=== PATIENT | female | born 1965 | race Caucasian/White ===

== ENCOUNTER → 2020-11-19 | Day surgery (SDC) | payer BC ==
[~2020-11-19] MED LIST: Ketamine 200 MG/20 ML MDV ONE; Lactated Ringers 1,000 ML IV SCH; Midazolam 1 MG/ML 2 ML SDV ONE; Propofol 200 MG/20 ML SDV ONE
[2020-11-19 12:38] VITALS: BP 152/92; PULSE 59
--- NOTE | 2020-11-19 13:34 | OR ---
DATE OF OPERATION: 11/19/2020 PREOPERATIVE DIAGNOSIS: POSITIVE COLOGUARD. POSTOPERATIVE DIAGNOSIS: POSITIVE COLOGUARD. SURGEON: Inder Stauffer MD PROCEDURE: DIAGNOSTIC COLONOSCOPY WITH BIOPSY X1. ANESTHESIA: MAC. COMPLICATIONS: None. SPECIMEN: Sigmoid biopsy x1. FINDINGS: 1. Full-length colonoscopy. 2. Extremely poor prep. 3. Melanosis coli, diffuse. RECOMMENDATIONS: We will sit down with the patient in followup and discuss the validity of a repeat scope with a longer prep as there were certainly areas of colon hard to see. INDICATIONS: The patient has a history of a positive Cologuard. We recommended a diagnostic procedure. DESCRIPTION OF PROCEDURE: The patient was prepped and draped, placed in the left lateral decubitus position. A lubricated Olympus colonoscope was inserted and easily advanced to the cecum. Unfortunately, the patient's prep was extremely poor. There was liquid dark stool throughout most of the colon. The cecum was irrigated for almost 5 minutes just to be able to visualize the valve and the appendiceal orifice which was accomplished. Upon withdrawal, the areas that we could we suctioned and tried to irrigate, but there was particulate stool in most of these areas as well. At least a third of the colon was hard to visualize at all. Most areas could be irrigated and I suspect larger lesions would have been found, but certainly smaller polyps could have been missed easily. I did not find any gross polyps, masses, ulceration, or bleeding sites. No obvious vascular abnormalities or signs of colitis. The patient does have melanosis coli diffusely and we did do a biopsy for confirmation in the sigmoid. Otherwise, no lesions. The rectal vault was benign. Retroflexion showed no perianal lesions other than some dilated hemorrhoids. Air was suctioned and the scope removed without complication. FARZANA/RAMSEY /[id number]
== END ==
LOC: CC.SDS 10:41
PROVIDERS: ATTEND Family Medicine
DX: K63.89 Other specified diseases of intestine (principal); K64.9 Unspecified hemorrhoids; I10 Essential (primary) hypertension; F51.05 Insomnia due to other mental disorder; D64.9 Anemia, unspecified; F41.8 Other specified anxiety disorders; Z88.8 Allergy status to other drugs, medicaments and biological substances; Z79.899 Other long term (current) drug therapy; Z98.890 Other specified postprocedural states; Z98.84 Bariatric surgery status
CPT/HCPCS: 00811; J2250; J2704; J7120

== ENCOUNTER → 2021-01-21 | Day surgery (SDC) | payer BC ==
[~2021-01-21] MED LIST changes: +Flumazenil 0.1 MG/ML 5 ML MDV ONE; +fentaNYL 100 MCG/2 ML SDV ONE
[2021-01-21 09:35] VITALS: PULSE 60
[2021-01-21 11:04] VITALS: BP 157/84
--- NOTE | 2021-01-22 09:12 | OR ---
DATE OF OPERATION: 01/21/2021 PREOPERATIVE DIAGNOSIS: POSITIVE COLOGUARD. POSTOPERATIVE DIAGNOSIS: POSITIVE COLOGUARD. SURGEON: Inder Stauffer MD PROCEDURE: FULL-LENGTH COLONOSCOPY. ANESTHESIA: MAC. COMPLICATIONS: None. SPECIMEN: None. FINDINGS: 1. Full-length colonoscopy. 2. Melanosis coli. RECOMMENDATIONS: Routine colonoscopy followup in 10 years. INDICATIONS: The patient elected for a Cologuard for colon cancer screening that was positive. Previous colonoscopy was a very poor prep and we repeated it due to the Cologuard. DESCRIPTION OF PROCEDURE: The patient was prepped and draped, placed in the left lateral decubitus position. A lubricated Olympus colonoscope was inserted and easily advanced to the cecum. Direct visualization of the ileocecal valve and appendiceal orifice was accomplished. The bowel prep was markedly improved. There was a lot of stool still present in the colon, but most all of it was liquid and we were able to suction it. At least a good 90% of the colon was thoroughly visualized. Upon withdrawal throughout the length of the colon once again, the patient had diffuse melanosis coli. Repeat biopsies were not taken of this. I could find no signs of any polyps, masses, ulceration, or bleeding sites. No vascular abnormalities or signs of colitis. Certainly, no signs of any malignant process. The rectal vault was benign. Retroflexion showed no perianal lesions. Air was suctioned and the scope removed without complication. FARZANA/RAMSEY /[id number]
== END ==
LOC: CC.SDS 09:14
PROVIDERS: ATTEND Family Medicine
DX: K31.89 Other diseases of stomach and duodenum (principal); R19.5 Other fecal abnormalities; I10 Essential (primary) hypertension; Z88.8 Allergy status to other drugs, medicaments and biological substances
CPT/HCPCS: J2250; J2704; J3010; J3490; J7120